=== PATIENT | female | born 1955 | race Caucasian/White ===

== ENCOUNTER 2016-08-05 12:27 | Day surgery (SDC) | payer OTHER ==
[~2016-08-05] VITALS: Ht 165.1 cm; Wt 63.0 kg
--- NOTE | 2016-08-05 07:09 | PCM.HPANE ---
Patient Data Surgeon Admitting Provider: Attending Provider:Iggy Woodruff MD Primary Care Physician:Carlo Torres MD Other Provider:Sharon Farah Anesthesia Reason for Visit Abnormal Colon Ct Findings, Nausea Ht/WT & BMI Body Mass Index Allergies Coded Allergies: Sulfa (Sulfonamide Antibiotics) (Verified Allergy, Severe, ANAPHYLAXIS, 08/05/16) amitriptyline (Verified Allergy, Intermediate, 08/05/16) levofloxacin (Verified Allergy, Mild, DECREASED WBC, 08/05/16) nitrofurantoin (Verified Allergy, Unknown, ATYPICAL PNEUMONIA, 08/05/16) Past Anesthesia History Anesthesia History: Denies:: Abnormal Airway, Anesthesia Reactions, Difficult Intubation, Fam Anesthesia Reaction, Fam Malignant Hypertherm, Malignant Hyperthermia Diabetes History Hx Diabetes?: No MRSA MRSA: No Medications Reported Medications Omeprazole Magnesium (Omeprazole)20 Mg Capsule.dr20 Mg PO DAILY 30 Days Ref 0 11/18/13 Epinephrine (Epipen 2-Feliz)0.3 Mg/0.3 Ml Auto.injct0.3 Mg IJ PRN PRN For Anaphyllaxis 11/18/13 Gabapentin Enacarbil (Horizant)600 Mg Tablet.er600 Mg PO DAILY PRN PRN 11/18/13 Fluticasone Propionate (Flonase Nasal)16 Gm [place].susp1 [place] NS BID #16 GM Ref 0 11/18/13 Discontinued Reported Medications Naproxen 250 Mg Reajsa538 Mg PO BID PRN For Pain Ref 0 11/18/13 Albuterol Sulfate (Ventolin HFA Inhaler)200 Puff/18 Gm Inhaler1 Puff INH Q4-6H PRN For Wheezing #1 INHALER Ref 0 11/18/13 Zolpidem (Ambien)5 Mg Tab5 Mg PO HS PRN For Insomnia 30 Days Ref 0 11/18/13 History History of ENT Problems?: Yes HEENT History: Positive for:: Sinus Problem (many years ago, sinus infections) Denies:: Abnormal Airway Cataracts Difficult Intubation Dysphagia Hearing Problem Hx of Heart Problems?: No Cardiovascular History: Denies:: AICD Atrial Fibrillation Chest Pain Congestive Heart Failure Hypertension Pacemaker Valvular Heart Disease Hx of Respiratory Problem?: Yes Respiratory History: Positive for:: Asthma (VERY MILD) Denies:: COPD Chest Surgery Cough Dyspnea Emphysema Hemoptysis Pneumonia Tuberculosis Hx Neurologic Problems?: Yes Neurological History: Positive for:: Dizziness (8 years ago) Headaches (occasional) Denies:: Alzheimer's Disease CVA Dementia Parkinson's Disease Seizures Hx of GI Problems?: Yes Gastrointestinal History: Positive for:: Diverticulitis Gastroesphageal Reflux (OMEPRAZOLE) Hepatitis Rectal Bleeding (STOPPED ONCE PT TOOK ABX AND STOPPED NAPROXEN) Denies:: Cirrhosis Gastrointestinal Bleeding Heartburn Hiatal Hernia Hx of Problems?: Yes Genitourinary History: Positive for:: Urinary Tract Infection (bladder infection Apr 2012) Denies:: HX of Hemodialysis Kidney Stones HX of Peritoneal Dialysis: No Female Hx: Positive for:: Endometriosis (1980, hysterectomy after that) Denies:: Currently Pelvic Inflammatory Problems with Breasts? Hx Musculoskeletal Problems?: Yes Musculoskeletal History: Positive for:: Back Injury (neck/ Left shoulder injury-work related) Musculoskeletal Trauma (right lateral ligament torn in 1974) Denies:: Joint Replacement Hx of Psycho/Social Problems?: Yes Psycho Social History: Positive for:: Anxiety Denies:: Bipolar Disorder Hx Depression Suicide Attempt Hx Surgeries?: Yes (hysterectomy, bone spur removal) Hx Any Other Health Problems?: Yes Other History: Positive for:: Cancer (basal cell carcinoma on face) Hospitalization (for previous surgeries) Denies:: Endocrine Disease Thyroid Disease History Blood Transfusions: Denies:: Blood Transfusions Hx Diabetes: No Hx Alcohol Use: NoHx Substance Use: No Smoking Status: Former Smoker Have You Smoked inLast 12 mo: No Stop/Bang Treated for Sleep Apnea?: Yes Do You Have a CPAP Machine?: Yes CARMEN Risk Assessment: High Risk, =/>3 Yes CARMEN Category 4 OutPt Procedure: Yes Risk Assessment Category Category 1A: Patient has history of documented sleep apnea, and HAS NOT received any narcotic, sedative or anesthesia administration during this stay. Category 1B: Patient has history of documented sleep apnea, and HAS received any narcotic , sedative or anesthesia administration during this stay Category 2: Patient has SUSPECTED Obstructive Sleep Apnea, and HAS received any narcotic , sedative or anesthesia administration during this stay. Category 3: Patient has SUSPECTED Obstructive Sleep Apnea and HAS NOT received narcotic, sedative or anesthesia administration during this stay. Category 4: Outpatient in Procedural Areas with known sleep apnea or who screen positive for High Risk via the STOP/BANG questionnaire. Exam Exam General Appearance: Alert, Oriented X3, Cooperative, No Acute Distress HEENT/AIRWAY: MP 2 Lungs: Clear to Auscultation, Normal Air Movement Heart: Exam Unremarkable, Regular Rate/Rhythm, No Murmurs/Rubs/Gallops Plan Impression Patient chart reviewed, patient interviewed and anesthestic plan with risks, benefits, and alternatives discussed, and informed consent obtained. ASA Physical Status: ASA2 Mod Systemic Disease Anesthetic Plan: MAC Bene/Risks/Altern/Consents: Yes HP Complete Prior to Induction: Yes Rosendo Madden MD Aug 05, 2016 07:08
[~2016-08-05 12:27] MED LIST: ALBU18HF INH; EPIN0.3P2 IJ; FLUT16SP2 NS; Lactated Ringer's 1,000 ML IV ONE; NAPR250T PO; OMEP-113 PO; ZLP5T PO; [UNRECOGNIZED DRUG - CODE] PO
[2016-08-05] MEDS ORDERED: fentaNYL-PF 50 mCg/mL 2 mL Inj ONE (12:28)
[2016-08-05] MEDS ORDERED: Propofol 10,000 mCg/mL 20 mL Inj ONE (12:28)
[2016-08-05 13:13] VITALS: BP 131/82; PULSE 71; RESP 16; O2SAT 96
[2016-08-05] MEDS ORDERED: Lactated Ringer's 1,000 ML IV SCH (13:50)
[2016-08-05] MEDS ORDERED: Ondansetron 2 mg/mL 2 mL Inj IVPUSH PRN (13:50)
[2016-08-05] MEDS ORDERED: MetoCLOpramide 5 mg/mL 2 mL Inj IVPUSH PRN (13:50)
--- NOTE | 2016-08-05 13:50 | PCM.ANEP1 ---
Post Anesthesia Phase 1 PACU Phase 1 Assessment Vital Signs Vital Signs Date Time Temp Pulse Resp B/P Pulse Ox O2 Delivery O2 Flow Rate FiO2 08/05/16 13:13 36.7 71 16 131/82 96 Room Air Anesthetic Administered: MAC Level of Alertness: Awake, talking CLANCY's with Equal Strength: Yes Pain: No Nausea or Vomiting: No Oxygen Delivery: Nasal Cannula Lungs: Clear to Auscultation, Normal Air Movement Rosendo Madden MD Aug 05, 2016 13:50
--- NOTE | 2016-08-05 13:51 | PCM.ANEP2 ---
Post Anesthesia Evaluation ASA/CMS Post Anesthesia VS in Patient's Normal Range?: Yes Resp Stable; Airway Patent?: Yes CV Function & Hydration Stable: Yes Mental Status Recovered?: Yes Pain control Satisfactory?: Yes N/V Control Satisfactory?: Yes Rosendo Madden MD Aug 05, 2016 13:50
[2016-08-05 13:54] VITALS: BP 112/85; PULSE 73; RESP 16; O2SAT 97
[2016-08-05 14:04] VITALS: BP 132/75; PULSE 65; RESP 16; O2SAT 95
[2016-08-05 14:14] VITALS: BP 123/77; PULSE 63; RESP 16; O2SAT 97
--- NOTE | 2016-08-05 14:28 | ENDO ---
[address] [address] ENDOSCOPY PROCEDURE PATIENT: RONAL ARRINGTON : 1955 MR#: [id number] ADMIT: 08/05/2016 JOB ID: [id number] DATE: 08/05/2016 PROCEDURE: Esophagogastroduodenoscopy. INDICATION: Nausea. The patient's ASA classification and Mallampati score and medications as per her surgery note. INSTRUMENT USED: GIF H 190. PROCEDURE DETAILS: After informed consent was obtained, the patient was brought into the GI suite, where she was placed on oxygen via nasal cannula and monitored with continuous pulse oximeter, telemetry and blood pressure monitoring. A time-out was performed. Then, she was placed in the left lateral decubitus position and a bite block was placed. The standard EGD scope was then inserted through the bite block and advanced under direct visualization to the second portion of the duodenum without difficulty. FINDINGS: 1. Normal appearing duodenal bulb, first and second portion. Multiple random biopsies were obtained. 2. Normal appearing pylorus. 3. In the antrum and body of stomach, the mucosa had an erythematous appearance suggestive of gastritis. Multiple random biopsies were obtained. 4. In the proximal gastric body, there were several linear erosions that measured approximately 2-3 cm in length. Multiple biopsies were obtained. 5. Retroflexed views of the gastric body revealed a normal-appearing cardia and fundus. 6. The GE junction was at 39 cm. The proximal most portion of salmon-colored mucosa was at 38 cm and there was a short tongue of salmon-colored mucosa extending to 37 cm. 7. Remainder of the esophagus was otherwise unremarkable. 8. Biopsies were obtained of the distal esophagus. IMPRESSION: 1. Gastric body erosions and gastritis. 2. C1M2 Story esophagus. COMPLICATIONS: None. ESTIMATED BLOOD LOSS: Less than 5 mL. RECOMMENDATIONS: 1. Continue PPI daily. 2. Avoid NSAIDs if able. 3. Proceed to colonoscopy. PROCEDURE PERFORMED: Colonoscopy. INDICATION: CT findings of thickening of the left side of the colon. Please see above for ASA classification, Mallampati score and medications. INSTRUMENTS USED: A PCF H 180 AL. PREPARATION QUALITY: Was fair. PROCEDURE DETAILS: After completion of the EGD examination, a digital rectal examination was performed and was unremarkable. The colonoscope was then inserted into the rectum and advanced under direct visualization to the cecum, which was identified by the presence of the ileocecal valve and appendiceal orifice. Once the cecum was reached, the colonoscope was withdrawn back into the rectum as the mucosa and lumen were examined. In the rectum, retroflexion was performed. Following retroflexion, remaining air in the rectum was suctioned, and procedure was completed. FINDINGS: 1. Melanosis coli was noted throughout the entire colon. 2. Scattered diverticula were seen throughout the left side of the colon. IMPRESSION: 1. Melanosis coli. 2. Left-sided diverticulosis. RECOMMENDATIONS: 1. Fiber rich diet. 2. Followup in GI clinic in 4-6 weeks. COMPLICATIONS: None. ESTIMATED BLOOD LOSS: 0.
--- NOTE | 2016-08-09 14:03 | PATH ---
SURGICAL PATHOLOGY Attending Physician:Shawnee Nowak CASE STATUS: Signed Out PATIENT NAME: RONAL ARRINGTON PID: [id number] : 1955 DATE COLLECTED:08/05/2016 00:00 SPECIMEN: 1: Duodenum, Biopsy 2: Gastric, Biopsy 3: Gastric, Biopsy 4: Esophagus, Biopsy CLINICAL HISTORY: 1). DUODENAL BIOPSY 2). RANDOM GASTRIC BIOPSY 3). GASTRIC BODY BIOPSY 4). DISTAL ESOPHAGUS BIOPSY FINAL DIAGNOSIS: 1.DUODENUM, BIOPSY: NO DIAGNOSTIC ABNORMALITY. Negative for intraepithelial lymphocytosis, villous blunting, or other features of celiac sprue. Negative for Giardia organisms, dysplasia and malignancy. 2.GASTRIC BIOPSY: GASTRIC CORPUS WITH MILD CHRONIC GASTRITIS. Negative for Helicobacter organisms. Negative for intestinal metaplasia. No evidence of dysplasia or malignancy.3.GASTRIC BODY BIOPSY: GASTRIC CORPUS WITH MILD CHRONIC GASTRITIS. Negative for Helicobacter organisms. Negative for intestinal metaplasia. No evidence of dysplasia or malignancy.4.ESOPHAGUS, BIOPSY: ESOPHAGEAL SQUAMOUS EPITHELIUM AND GASTRIC GLANDULAR MUCOSA WITH CHRONIC ACTIVE INFLAMMATION. Negative for intestinal metaplasia. No evidence of malignancy or dysplasia. ICD10 code K29.70 GROSS DESCRIPTION: Received are four formalin-filled containers, each labeled with the patient' s name. 1. Received in formalin, labeled with the patient' s name and "duodenal biopsy", are three fragments of augustine, soft tissue ranging in size from 0.1 x 0.1 x 0.1 cm to 0.2 x 0.1 x 0.1 cm. All fragments are totally submitted in cassette 1A. 2. Received in formalin, labeled with the patient' s name and "random gastric biopsies", are two fragments of augustine, soft tissue ranging in size from 0.1 x 0.1 x 0.1 cm to 0.2 x 0.1 x 0.1 cm. All fragments are totally submitted in cassette 2A. 3. Received in formalin, labeled with the patient' s name and "gastric body biopsies", are two fragments of augustine, soft tissue ranging in size from 0.1 x 0.1 x 0.1 cm to 0.2 x 0.1 x 0.1 cm. All fragments are totally submitted in cassette 3A. 4. Received in formalin, labeled with the patient' s name and "distal esophagus biopsy", is one fragment of augustine, soft tissue measuring 0.2 x 0.1 x 0.1 cm. The fragment is totally submitted in cassette 4A. ([id number]) MICRO DESCRIPTION: See diagnosis. ICD-9 CODES: CPT CODES: 1: 55407 2: 21387 3: 27207 4: 25832 Electronically Signed Out Suresh Roach MD [facility]ly [facility] Pathology [facility] [address], [place] [address] Technical component performed at [facility], [address], [place], [address]
== END 2016-08-05 23:59 | disposition home or self-care (01) ==
LOC: END 12:27
PROVIDERS: ATTEND Internal Medicine Gastroenterology
DX: K22.70 Barrett's esophagus without dysplasia (principal); K29.50 Unspecified chronic gastritis without bleeding; R93.3 Abnormal findings on diagnostic imaging of other parts of digestive tract; K57.30 Diverticulosis of large intestine without perforation or abscess without bleeding; K63.89 Other specified diseases of intestine; R11.0 Nausea; R63.4 Abnormal weight loss; R10.11 Right upper quadrant pain; G47.33 Obstructive sleep apnea (adult) (pediatric); F10.21 Alcohol dependence, in remission; J45.909 Unspecified asthma, uncomplicated; K21.9 Gastro-esophageal reflux disease without esophagitis; F41.9 Anxiety disorder, unspecified; Z85.828 Personal history of other malignant neoplasm of skin; Z87.891 Personal history of nicotine dependence; Z68.23 Body mass index [BMI] 23.0-23.9, adult
CPT/HCPCS: 43239; 45378; J2250; J3010; J7120